=== PATIENT | male | born 1935 | race Caucasian/White ===

== ENCOUNTER 2016-09-25 09:24 | Observation (INO) | payer MEDICARE, OTHER ==
[~2016-09-25] VITALS: Ht 188 cm; Wt 97.0 kg
[2016-09-25] VITALS (9 sets, daily range): BP systolic 101–141; BP diastolic 60–98; PULSE 77–125; RESP 18–28; TEMP 97.6–98.6; O2SAT 90–98
[~2016-09-25 09:24] MED LIST: ADAL30TA10 PO; ALBU6.7H INH; ASPI81 PO; ATOR20TA42 PO; DOXY100T PO; POTA-243 PO
[2016-09-25] MEDS ORDERED: SODIUM CHLORIDE 0.9% FLUSH 5 ML FLUSH IVF PRN ×2 (09:45→16:30)
[2016-09-25] MEDS ORDERED: LISI-519 PO (09:56)
[2016-09-25] MEDS ORDERED: APIX5TAB PO (09:56)
[2016-09-25] MEDS ORDERED: CARV6.25 PO (09:56)
[2016-09-25] MEDS ORDERED: DIGO0.25 PO (09:56)
[2016-09-25] MEDS ORDERED: LIPI20TA PO (09:56)
[2016-09-25] MEDS ORDERED: FURO1TAB62 PO (09:56)
[2016-09-25 10:03] LABS: AUTOMATED NEUTROPHIL # 6.1 TH/MM3 (1.8-7.7); BASOPHIL # 0.1 TH/MM3 (0-0.2); BASOPHIL % 1.3 % (0.0-2.0); EOSINOPHIL # 0.4 TH/MM3 (0-0.4); EOSINOPHIL % 4.3 % (0.0-4.0); HEMO FLAGS DIFF FINAL; LYMPH % 12.3 % (9.0-44.0); MEAN CELL VOLUME 88.7 FL (80.0-100.0); MEAN CORPUSCULAR HEMOGLOBIN 29.3 PG (27.0-34.0); MONO % 10.2 % (0.0-8.0); NEUT % 71.9 % (16.0-70.0); PLATELET COUNT 121 TH/MM3 (150-450); RED BLOOD COUNT 5.41 MIL/MM3 (4.50-5.90); WHITE BLOOD COUNT 8.5 TH/MM3 (4.0-11.0)
--- NOTE | 2016-09-25 10:03 | RADRPT ---
EXAM DATE/TIME: 09/25/2016 09:39 [facility] COMPARISON: No previous studies available for comparison. INDICATIONS : Shortness of breath. MEDICAL HISTORY : Hypertension. SURGICAL HISTORY : Pacemaker. ENCOUNTER: Initial ACUITY: 2 days PAIN SCORE: 0/10 LOCATION: Bilateral chest FINDINGS: There is interstitial prominence and patchy airspace disease at the lung bases right greater than lef t. Cardiomegaly. No effusions. Aortic calcification. Single lead pacer from a left subclavian transve nous approach. CONCLUSION: Interstitial prominence and basilar airspace disease. Richar Will MD on September 25, 2016 at 10:01 Board Certified Radiologist. This report was verified electronically.
[2016-09-25 10:14] LABS: APTT (PATIENT) 29.1 SEC (24.3-30.1); INTERNATIONAL NORMALIZED RATIO 1.2 RATIO; PROTHROMBIN TIME - PATIENT 12.9 SEC (9.8-11.6)
[2016-09-25] MEDS ORDERED: FUROSEMIDE 40 MG/4 ML VIAL IV PUSH ONE (10:30)
--- NOTE | 2016-09-25 10:30 | PD ---
HPI Chief Complaint: Respiratory Symptoms Time Seen by Provider: 09:36 Travel History International Travel<30 days: No Contact w/Intl Traveler<30days: No Traveled to known affect area: No History of Present Illness HPI Patient is an 81-year-old male who presents to emergency room with complaints of shortness of breath. Patient reports that he had a pacemaker placed in August 24, in [place] where he resides half of the time. Patient reports, "I don't know why I had a defibrillator placed." Patient reports that he has been short of breath ever since he had his defibrillator placed. Patient reports that his shortness of breath has been intermittent, reports that over the past 4 days, his shortness of breath has been more persistent. Patient reports that he feels short of breath at rest as well as on exertion. Patient reports that he does use chronic home oxygen at 2 L. Reports that he was not able to sleep last night and had to sit up because he was feeling short of breath. Patient denies chest pain, denies cough or congestion. Patient reports no sick contacts. Patient denies fever or chills. Patient reports a remote history of smoking in the past, reports that he currently does not smoke. Patient denies history of CHF or COPD. Patient is unsure which medications he takes this time. Patient denies any medical history. Patient is alert and oriented 3 Patient's arrives with medication list, patient is on Eliquis, digoxin, coreg, laxis 20mg, lisinopril and atorvastatin PFSH Past Medical History High Cholesterol: Yes Diminished Hearing: No Genitourinary: Yes (PROSTATE ENLARGEMENT) Hypertension: Yes Kidney Stones: Yes Influenza Vaccination: Yes Past Surgical History Eye Surgery: Yes (CATARACTS SURGERY) Genitourinary Surgery: Yes (PARTIAL PROSTATECTOMY) Pacemaker: Yes Family History Family History: Negative Social History Alcohol Use: Yes (2 DRINKS TWICE A MONTH) Tobacco Use: No Substance Use: No Allergies-Medications (Allergen,Severity, Reaction): Coded Allergies: No Known Allergies (Verified , 09/25/16) Reported Meds & Prescriptions Reported Meds & Active Scripts Active Reported Lisinopril 5 Mg Tab 5 Mg PO DAILY Lasix (Furosemide) 20 Mg Tab 20 Mg PO BID Digoxin 0.25 Mg Tab 0.25 Mg PO DAILY Coreg (Carvedilol) 6.25 Mg Tab 6.25 Mg PO BID Lipitor (Atorvastatin Calcium) 20 Mg Tab 20 Mg PO HS Eliquis (Apixaban) 5 Mg Tab 5 Mg PO BID Review of Systems Cardiovascular: No: Chest Pain or Discomfort, Palpitations, Irregular Rhythm, Syncope Respiratory: Positive: Shortness of Breath, No: Cough Gastrointestinal: No: Nausea, Vomiting, Diarrhea, Abdominal Pain Physical Exam Narrative GENERAL: Nontoxic SKIN: Warm and dry. HEAD: Atraumatic. Normocephalic. EYES: Pupils equal and round. No scleral icterus. No injection or drainage. ENT: No nasal bleeding or discharge. Mucous membranes pink and moist. NECK: Trachea midline. No JVD. CARDIOVASCULAR: Tachycardic. No murmur appreciated. RESPIRATORY: No accessory muscle use. Patient with rales to lower lung bases. Breath sounds equal bilaterally. GASTROINTESTINAL: Abdomen soft, non-tender, nondistended. Hepatic and splenic margins not palpable. MUSCULOSKELETAL: No obvious deformities. No clubbing. No cyanosis. +2 edema bilaterally NEUROLOGICAL: Awake and alert. No obvious cranial nerve deficits. Motor grossly within normal limits. Normal speech. PSYCHIATRIC: Appropriate mood and affect; insight and judgment normal. Data Data Last Documented VS Vital Signs Date Time Temp Pulse Resp B/P Pulse Ox O2 Delivery O2 Flow Rate FiO2 09/25/16 13:13 77 22 101/60 90 2 09/25/16 11:38 Nasal Cannula 09/25/16 09:28 98.6 Orders Complete Blood Count With Diff (09/25/16 09:37) Comprehensive Metabolic Panel (09/25/16 09:37) B-Type Natriuretic Peptide (09/25/16 09:37) Act Partial Throm Time (Ptt) (09/25/16 09:37) Prothrombin Time / Inr (Pt) (09/25/16 09:37) Magnesium (Mg) (09/25/16 09:37) Ckmb (Isoenzyme) Profile (09/25/16 09:37) Troponin I (09/25/16 09:37) Urinalysis - C+S If Indicated (09/25/16 09:37) Influenzae A/B Antigen (09/25/16 09:37) Blood Culture (09/25/16 09:37) Iv Access Insert/Monitor (09/25/16 09:37) Electrocardiogram (09/25/16 09:37) Ecg Monitoring (09/25/16 09:37) Oximetry (09/25/16 09:37) Oxygen Administration (09/25/16 09:37) Chest, Single Ap (09/25/16 09:37) Sodium Chloride 0.9% Flush (Ns Flush) (09/25/16 09:45) Us Leg Venous Doppler Bilat (09/25/16 ) Furosemide Inj (Lasix Inj) (09/25/16 10:30) Ct Pulmonary Angiogram (09/25/16 11:59) Diltiazem Inj (Cardizem Inj) (09/25/16 12:00) Digoxin (09/25/16 12:01) Iohexol 350 Inj (Omnipaque 350 Inj) (09/25/16 12:47) Diltiazem (Cardizem) (09/25/16 13:30) Labs Laboratory Tests Test 09/25/16 09/25/16 09:46 12:25 White Blood Count 8.5 TH/MM3 Red Blood Count 5.41 MIL/MM3 Hemoglobin 15.8 GM/DL Hematocrit 48.0 % Mean Corpuscular Volume 88.7 FL Mean Corpuscular Hemoglobin 29.3 PG Mean Corpuscular Hemoglobin 33.0 % Concent Red Cell Distribution Width 15.0 % Platelet Count 121 TH/MM3 Mean Platelet Volume 11.0 FL Neutrophils (%) (Auto) 71.9 % Lymphocytes (%) (Auto) 12.3 % Monocytes (%) (Auto) 10.2 % Eosinophils (%) (Auto) 4.3 % Basophils (%) (Auto) 1.3 % Neutrophils # (Auto) 6.1 TH/MM3 Lymphocytes # (Auto) 1.0 TH/MM3 Monocytes # (Auto) 0.9 TH/MM3 Eosinophils # (Auto) 0.4 TH/MM3 Basophils # (Auto) 0.1 TH/MM3 CBC Comment DIFF FINAL Differential Comment Prothrombin Time 12.9 SEC Prothromb Time International 1.2 RATIO Ratio Activated Partial 29.1 SEC Thromboplast Time Sodium Level 143 MEQ/L Potassium Level 3.8 MEQ/L Chloride Level 110 MEQ/L Carbon Dioxide Level 23.2 MEQ/L Anion Gap 10 MEQ/L Blood Urea Nitrogen 28 MG/DL Creatinine 1.01 MG/DL Estimat Glomerular Filtration 71 ML/MIN Rate Random Glucose 110 MG/DL Calcium Level 8.5 MG/DL Magnesium Level 2.2 MG/DL Total Bilirubin 1.0 MG/DL Aspartate Amino Transf 72 U/L (AST/SGOT) Alanine Aminotransferase 91 U/L (ALT/SGPT) Alkaline Phosphatase 192 U/L Total Creatine Kinase 79 U/L Troponin I LESS THAN 0.02 NG/ML B-Type Natriuretic Peptide 997 PG/ML Total Protein 6.7 GM/DL Albumin 3.2 GM/DL Urine Color COLORLESS Urine Turbidity CLEAR Urine pH 7.0 Urine Specific [place] 1.004 Urine Protein NEG mg/dL Urine Glucose (UA) NEG mg/dL Urine Ketones NEG mg/dL Urine Occult Blood NEG Urine Nitrite NEG Urine Bilirubin NEG Urine Urobilinogen LESS THAN 2.0 MG/DL Urine Leukocyte Esterase NEG Urine RBC 1 /hpf Urine WBC LESS THAN 1 /hpf Urine Squamous Epithelial <1 /hpf Cells Microscopic Urinalysis Comment CULT NOT INDICATED MDM Medical Decision Making Medical Screen Exam Complete: Yes Emergency Medical Condition: Yes Interpretation(s) afib at 109bpm, qt/qtc: 347/411 Vital Signs Date Time Temp Pulse Resp B/P Pulse Ox O2 Delivery O2 Flow Rate FiO2 09/25/16 09:41 92 09/25/16 09:40 92 Nasal Cannula 2 09/25/16 09:28 98.6 125 28 141/89 91 Differential Diagnosis CHF exacerbation, COPD exacerbation, ACS, electrolyte abnormality, influenza, pneumonia, PE, DVT, pneumothorax Narrative Course Patient is an 81-year-old male who presents to emergency room with complaints of shortness of breath. Shortness of breath has been intermittent since August 24 when his defibrilator was placed. Patient reports that history was breath has been persistent over the past 4 days, reports shortness of breath with rest as well as exertion. Patient does use 2L [place] oxygen at all times. Patient placed on lunchroom monitor as well as continuous pulse oximeter upon arrival to ER. EKG obtained. Xray of chest ordered. CBC, BMP, BNP, CE, blood cultures, and influenza ordered. US of legs ordered to evaluate for possible DVT as patient does have swelling to his legs. Will give a dose of IV lasiz as pt does appear to be fluid overloaded. Pt's on route to hospital - as per pt - she has his medication card and all the information about this medical history Medications list reviewed, patient currently on Eliquis, digoxin, Lasix, lisinopril, atorvastatin, Coreg, will check digoxin level. Patient with A. fib with RVR, will give dose of Cardizem pt responded to iv cardizem - pt hr now in the 80's, will give PO dose of cardizem Physician Communication Physician Communication case reviewed with fp resident dr urias, accepts pt to service Diagnosis Primary Impression: Atrial fibrillation with rapid ventricular response Additional Impression: CHF (congestive heart failure) Qualified Code: I50.9 - Acute on chronic congestive heart failure, unspecified congestive heart failure type Admitting Information Admitting Physician Requests: Admit Lashawn Song DO Sep 25, 2016 10:30
[2016-09-25 10:35] LABS: ALKALINE PHOSPHATASE 192 U/L (45-117); ALT (GPT) 91 U/L (12-78); ANION GAP 10 MEQ/L (5-15); AST (GOT) 72 U/L (15-37); BICARBONATE 23.2 MEQ/L (21.0-32.0); BLOOD UREA NITROGEN 28 MG/DL (7-18); CHLORIDE 110 MEQ/L (98-107); GLOMERULAR FILTRATION RATE 71 ML/MIN (>89); MAGNESIUM 2.2 MG/DL (1.5-2.5); SODIUM (NA) 143 MEQ/L (136-145)
[2016-09-25 10:36] LABS: CREATINE KINASE 79 U/L (39-308); POTASSIUM 3.8 MEQ/L (3.5-5.1)
--- NOTE | 2016-09-25 10:43 | RADRPT ---
EXAM DATE/TIME: 09/25/2016 10:13 [facility] COMPARISON: No previous studies available for comparison. INDICATIONS : Bilateral leg swelling. MEDICAL HISTORY : Hypercholesterolemia. Hypertension. Kidney stones. SURGICAL HISTORY : Pacemaker. Cataract removal. Hand surgery. ENCOUNTER: Initial ACUITY: 3 days PAIN SCORE: 0/10 LOCATION: Bilateral legs. TECHNIQUE: Venous ultrasound of the left and right leg was performed from the inguinal ligament to the proximal calf. Real-time, color Doppler and spectral tracing, compression and augmentation techniques were us ed. FINDINGS: RIGHT LEG: There is normal compressibility of the deep venous system from the inguinal region to the proximal ca lf. No echogenic clot is seen in the lumen of the common femoral, femoral, popliteal, and posterior tibial veins. There is a normal response of the venous system to proximal and distal augmentation an d respiration. LEFT LEG: There is normal compressibility of the deep venous system from the inguinal region to the proximal ca lf. No echogenic clot is seen in the lumen of the common femoral, femoral, popliteal, and posterior tibial veins. There is a normal response of the venous system to proximal and distal augmentation an d respiration. CONCLUSION: Normal examination. Richar Will MD on September 25, 2016 at 10:41 Board Certified Radiologist. This report was verified electronically.
[2016-09-25] MEDS ORDERED: DILTIAZEM HCL 25 MG/5 ML VIAL IV ONE (12:00)
[2016-09-25 12:34] LABS: BLOOD, URINE NEG (NEG); COMMENT (UR) CULT NOT INDICATED; CULTURE IF INDICATED CULT NOT INDICATED; GLUCOSE,URINE NEG (NEG); KETONE, URINE NEG (NEG); NITRITE,URINE NEG (NEG); SQUAMOUS EPITHELIAL CELL URINE <1 /hpf (0-5); URINE COLOR COLORLESS (YELLW/STRAW)
[2016-09-25] MEDS ORDERED: IOHEXOL 350 MG/ML 10 ML VIAL (for RAD DIAG) IV ONE (12:47)
--- NOTE | 2016-09-25 13:00 | RADRPT ---
EXAM DATE/TIME: 09/25/2016 12:35 [facility] COMPARISON: CHEST SINGLE AP, September 25, 2016, 9:39. INDICATIONS : Shortness of breath for three days. IV CONTRAST: 49 cc Omnipaque 350 (iohexol) IV RADIATION DOSE: 21.50 CTDIvol (mGy) MEDICAL HISTORY : Hypertension. SURGICAL HISTORY : None. ENCOUNTER: Initial ACUITY: 1 day PAIN SCALE: 0/10 LOCATION: chest TECHNIQUE: Volumetric scanning of the chest was performed using a pulmonary embolism protocol MIP images were re constructed. Using automated exposure control and adjustment of the mA and/or kV according to patien t size, radiation dose was kept as low as reasonably achievable to obtain optimal diagnostic quality images. FINDINGS: Severe emphysematous changes, large bilateral pleural effusions, and lower lobe airspace disease. The re is peribronchial thickening and mild bronchiectasis in the lower lobes. There is a cystic air spac e with possible air-fluid level in the right lower lobe measuring 2.1 cm, and a cavitary lesion is no t excluded. There is adenopathy within the mediastinum with multiple prominent lymph nodes including 1.3 cm AP window lymph node, right paratracheal adenopathy up to 1.8 cm, subcarinal adenopathy up to 1.6 cm and right hilar adenopathy up to 1.1 cm. Left hilar adenopathy is also seen up to 1.1 cm. Left renal cyst at the upper pole. There is no evidence for pulmonary embolism. Extensive atherosclerotic disease including heavy coronary artery calcifications. CONCLUSION: 1. Large bilateral pleural effusions and airspace disease. 2. No evidence for pulmonary embolism. 3. Mediastinal and hilar adenopathy. 4. Right lower lobe cavitary focus not excluded. 5. Emphysema. Richar Will MD on September 25, 2016 at 12:56 Board Certified Radiologist. This report was verified electronically.
[2016-09-25] MEDS ORDERED: DILTIAZEM HCL 60 MG TAB PO ONE (13:30)
--- NOTE | 2016-09-25 15:40 | HHI.FPPN ---
Subjective Remarks Pt. seen, examined and discussed with Drs. Foss and Sushil. This is an 81 yo snowbird who lives half the year in [place] who presented with SOB which prevented him from sleeping at all last night. He has been told he has a weak heart. On 08-24-16 he got a difibrillator implanted in [place]. Subsequently he developed SOB and saw a physician who diagnosed him with the flu and treated him with antibiotics. He got better for a few days but his SOB has been getting progressively worse. They drove from [place] and arrived in [place] 4 days ago. SOB has persisted, and at 0300 this a.m. he had his call evac. He denies dizziness, chest pain, nausea, vomiting in association with this SOB. Denies palpitations. Meds include Coreg, digoxin, lipitor, lasix, Eliquis. See H&P for this hospitalization for additional past, family and social history. He is , retired, quit smoking 7 years ago, no etoh or illicits. Other than as noted above, his complete review of systems was negative. Objective Vitals Vital Signs Date Time Temp Pulse Resp B/P Pulse Ox O2 Delivery O2 Flow Rate FiO2 09/25/16 13:13 77 22 101/60 90 2 09/25/16 11:38 124 20 131/98 95 Nasal Cannula 2 09/25/16 09:41 92 09/25/16 09:40 92 Nasal Cannula 2 09/25/16 09:28 98.6 125 28 141/89 91 Result Diagram: 09/25/16 0946 09/25/16 0946 Other Results Laboratory Tests Test 09/25/16 09/25/16 09/25/16 09:46 12:25 12:57 White Blood Count 8.5 TH/MM3 Red Blood Count 5.41 MIL/MM3 Hemoglobin 15.8 GM/DL Hematocrit 48.0 % Mean Corpuscular Volume 88.7 FL Mean Corpuscular Hemoglobin 29.3 PG Mean Corpuscular Hemoglobin 33.0 % Concent Red Cell Distribution Width 15.0 % Platelet Count 121 TH/MM3 Mean Platelet Volume 11.0 FL Neutrophils (%) (Auto) 71.9 % Lymphocytes (%) (Auto) 12.3 % Monocytes (%) (Auto) 10.2 % Eosinophils (%) (Auto) 4.3 % Basophils (%) (Auto) 1.3 % Neutrophils # (Auto) 6.1 TH/MM3 Lymphocytes # (Auto) 1.0 TH/MM3 Monocytes # (Auto) 0.9 TH/MM3 Eosinophils # (Auto) 0.4 TH/MM3 Basophils # (Auto) 0.1 TH/MM3 CBC Comment DIFF FINAL Differential Comment Prothrombin Time 12.9 SEC Prothromb Time International 1.2 RATIO Ratio Activated Partial 29.1 SEC Thromboplast Time Sodium Level 143 MEQ/L Potassium Level 3.8 MEQ/L Chloride Level 110 MEQ/L Carbon Dioxide Level 23.2 MEQ/L Anion Gap 10 MEQ/L Blood Urea Nitrogen 28 MG/DL Creatinine 1.01 MG/DL Estimat Glomerular Filtration 71 ML/MIN Rate Random Glucose 110 MG/DL Calcium Level 8.5 MG/DL Magnesium Level 2.2 MG/DL Total Bilirubin 1.0 MG/DL Aspartate Amino Transf 72 U/L (AST/SGOT) Alanine Aminotransferase 91 U/L (ALT/SGPT) Alkaline Phosphatase 192 U/L Total Creatine Kinase 79 U/L Troponin I LESS THAN 0.02 NG/ML B-Type Natriuretic Peptide 997 PG/ML Total Protein 6.7 GM/DL Albumin 3.2 GM/DL Urine Color COLORLESS Urine Turbidity CLEAR Urine pH 7.0 Urine Specific [place] 1.004 Urine Protein NEG mg/dL Urine Glucose (UA) NEG mg/dL Urine Ketones NEG mg/dL Urine Occult Blood NEG Urine Nitrite NEG Urine Bilirubin NEG Urine Urobilinogen LESS THAN 2.0 MG/DL Urine Leukocyte Esterase NEG Urine RBC 1 /hpf Urine WBC LESS THAN 1 /hpf Urine Squamous Epithelial <1 /hpf Cells Microscopic Urinalysis Comment CULT NOT INDICATED Digoxin Level LESS THAN 0.1 NG/ML Imaging Venous dopplers LE negative CTA negative for PE, + for bilateral pleural effusions and emphysema. Possible lower lobe cavitary lesion Objective Remarks O. CONSTITUTIONAL/GEN: normally nourished, in some distress with SOB. EYES: conjunctiva normal, PERRLA, EOMI. ENT: Mouth and pharynx normal. MM moist. NECK: thyroid midline, neck supple, no lymphadenopathy LUNGS: Decreased breath sounds both bases CARDIOVASCULAR: Irreg/irreg without murmur or gallop. Pitting edema to knees. GI/ABD: soft without masses, without organomegaly. Protuberant, BS+ NEURO: No focal deficits. SKIN: color normal, no rashes noted. HEME/LYMPH: no bruising, petechia or significant adenopathy MUSC: back is normal in appearance. Extremities are normal in appearance except for edema. PSYCH/MENTAL STATUS: Alert and oriented x 3. A/P Assessment and Plan Bilateral pleural effusions, emphysema, AF with RVR, ? cavitary lesion lower lobe Attending Attestation Patient seen and examined. Case reviewed and discussed with the resident team. Agree with plan of care as discussed with me and documented in the resident note. Elham Foss MD Sep 25, 2016 15:40
--- NOTE | 2016-09-25 16:10 | HHI.HP ---
[facility] Service Family Medicine Primary Care Physician Non-Staff Admission Diagnosis afib with rvr, chf exacerbation Diagnoses: International Travel<30 Days: No Contact w/Intl Traveler<30days: No Known Affected Area: No History of Present Illness Was having irregular rhythm to heart in Jul. Defibrillator placed on Aug 24. Patient reports worsening of shortness of breath since this procedure. Patient experienced shortness of breath on . He presented to a doctor who prescribed antibiotics. He only took one because of adverse effects. Symptoms got better then worse since that time. Patient drove down here 4-5 days ago from [place]. Around that time 4-5 days ago, shortness of breath at rest and with exertion got much worse: he could not lie down. He could only sit up. At around 3am this morning, he told his to call 911 because he felt like he couldn't breathe when lying down. Evac brought him here. Pt reports med compliance, but this is questionable. Patient denies chest pain, denies cough or congestion. Patient reports no sick contacts. Patient denies fever or chills. Patient reports a remote history of smoking in the past, reports that he currently does not smoke. Patient denies history of CHF or COPD. Patient is unsure which medications he takes this time. (Paco Ling MD R1) Review of Systems Constitutional: DENIES: Fever, Chills Endocrine: COMPLAINS OF: Polyuria (with diuretic) Eyes: COMPLAINS OF: Blurred vision, DENIES: Vision loss, Double Vision Ears, nose, mouth, throat: DENIES: Hearing loss Respiratory: COMPLAINS OF: Shortness of breath, DENIES: Cough Cardiovascular: COMPLAINS OF: Dyspnea on Exertion, Orthopnea, DENIES: Chest pain, Palpitations, Syncope Gastrointestinal: DENIES: Abdominal pain, Black stools, Bloody stools, Constipation, Diarrhea Genitourinary: DENIES: Dysuria Musculoskeletal: DENIES: Joint pain Integumentary: DENIES: Rash Neurologic: DENIES: Headache (Paco Ling MD R1) Past Family Social History Past Medical History HTN BPH s/p TURP off cholesterol med Past Surgical History TURP defibrillator placed on 2015 Reported Medications Patient's arrived with medication list, patient is on Eliquis, digoxin, coreg, laxis 20mg, lisinopril and atorvastatin (Paco Ling MD R1) Allergies: Coded Allergies: No Known Allergies (Verified , 09/25/16) Active Ordered Medications Current Medications Medications (Trade) Dose Ordered Sig/Juan Route Start Time Stop Time Status Last Admin (NS Flush) 2 ml BID IVF 09/25/16 21:00 09/25/16 21:27 (NS Flush) 2 ml UNSCH PRN IVF 09/25/16 16:30 (Lasix Inj) 40 mg BID@09,18 IVP 09/25/16 18:00 09/25/16 17:49 (KCl) 20 meq BID PO 09/25/16 21:00 09/25/16 21:26 (Eliquis) 5 mg BID PO 09/25/16 21:00 09/25/16 21:26 (Lipitor) 20 mg HS PO 09/25/16 21:00 09/25/16 21:27 (Coreg) 6.25 mg BID PO 09/25/16 21:00 09/25/16 21:26 (Lanoxin) 0.25 mg DAILY PO 09/26/16 09:00 (Prinivil) 5 mg DAILY PO 09/26/16 09:00 (Narcan Inj) 0.4 mg UNSCH PRN IV 09/25/16 16:30 (Cardizem Cd) 120 mg DAILY PO 09/26/16 09:00 (Cardizem) 30 mg QID PRN PO 09/25/16 16:30 Family History Negative Social History 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 spends half his time in [place] and half his time here in [place]. used to smoke. pt reports that he quit smoking about 7 years ago, but he started smoking in [place] about 40 years ago. doesn't like EtOH. Drinks only occasionally. (Paco Ling MD R1) Physical Exam Vital Signs Vital Signs Date Time Temp Pulse Resp B/P Pulse Ox O2 Delivery O2 Flow Rate FiO2 09/25/16 13:13 77 22 101/60 90 2 09/25/16 11:38 124 20 131/98 95 Nasal Cannula 2 09/25/16 09:41 92 09/25/16 09:40 92 Nasal Cannula 2 09/25/16 09:28 98.6 125 28 141/89 91 Physical Exam GENERAL: This is a well-nourished, well-developed elderly patient, in no apparent distress. SKIN: No rashes, ecchymoses or lesions. Cool and dry. HEAD: Atraumatic. Normocephalic. EYES: Pupils equal round and reactive. Extraocular motions intact. No scleral icterus. No injection or drainage. ENT: Nose without bleeding, purulent drainage. Throat without erythema, tonsillar hypertrophy or exudate. Uvula midline. Airway patent. NECK: Trachea midline. No JVD or lymphadenopathy. Supple, nontender, no meningeal signs. CARDIOVASCULAR: Regular rate and rhythm without murmurs, gallops, or rubs. RESPIRATORY: Clear to auscultation. Breath sounds equal bilaterally. No wheezes , rales, or rhonchi. GASTROINTESTINAL: Abdomen soft, non-tender, nondistended. No guarding. MUSCULOSKELETAL: Extremities without clubbing, cyanosis, or edema. No joint tenderness, effusion, however 2+ edema noted to knees BL. No calf tenderness. NEUROLOGICAL: Awake and alert. Cranial nerves II through XII grossly intact. Motor and sensory grossly within normal limits. Normal speech. Laboratory Laboratory Tests Test 09/25/16 09/25/16 09/25/16 09:46 12:25 12:57 White Blood Count 8.5 Red Blood Count 5.41 Hemoglobin 15.8 Hematocrit 48.0 Mean Corpuscular Volume 88.7 Mean Corpuscular Hemoglobin 29.3 Mean Corpuscular Hemoglobin 33.0 Concent Red Cell Distribution Width 15.0 Platelet Count 121 Mean Platelet Volume 11.0 Neutrophils (%) (Auto) 71.9 Lymphocytes (%) (Auto) 12.3 Monocytes (%) (Auto) 10.2 Eosinophils (%) (Auto) 4.3 Basophils (%) (Auto) 1.3 Neutrophils # (Auto) 6.1 Lymphocytes # (Auto) 1.0 Monocytes # (Auto) 0.9 Eosinophils # (Auto) 0.4 Basophils # (Auto) 0.1 CBC Comment DIFF FINAL Differential Comment Prothrombin Time 12.9 Prothromb Time International 1.2 Ratio Activated Partial 29.1 Thromboplast Time Sodium Level 143 Potassium Level 3.8 Chloride Level 110 Carbon Dioxide Level 23.2 Anion Gap 10 Blood Urea Nitrogen 28 Creatinine 1.01 Estimat Glomerular Filtration 71 Rate Random Glucose 110 Calcium Level 8.5 Magnesium Level 2.2 Total Bilirubin 1.0 Aspartate Amino Transf 72 (AST/SGOT) Alanine Aminotransferase 91 (ALT/SGPT) Alkaline Phosphatase 192 Total Creatine Kinase 79 Troponin I LESS THAN 0.02 B-Type Natriuretic Peptide 997 Total Protein 6.7 Albumin 3.2 Urine Color COLORLESS Urine Turbidity CLEAR Urine pH 7.0 Urine Specific [place] 1.004 Urine Protein NEG Urine Glucose (UA) NEG Urine Ketones NEG Urine Occult Blood NEG Urine Nitrite NEG Urine Bilirubin NEG Urine Urobilinogen LESS THAN 2.0 Urine Leukocyte Esterase NEG Urine RBC 1 Urine WBC LESS THAN 1 Urine Squamous Epithelial <1 Cells Microscopic Urinalysis Comment CULT NOT INDICATED Digoxin Level LESS THAN 0.1 Date/Time Procedure Status Source Growth 09/25/16 09:46 Influenza Types A,B Antigen (JOANA) - Final Complete Nasal Aspirate NEGATIVE FOR FLU A AND B ANTIGEN.... 09/25/16 09:46 Aerobic Blood Culture Received Blood Peripheral Pending 09/25/16 09:46 Anaerobic Blood Culture Received Blood Peripheral Pending (Paco Lign MD R1) Result Diagram: 09/25/16 0946 09/25/16 [address] Angiography 09/25/16 1159 Signed Impressions: Service Date/Time: Sunday, September 25, 2016 12:35 - CONCLUSION: 1. Large bilateral pleural effusions and airspace disease. 2. No evidence for pulmonary embolism. 3. Mediastinal and hilar adenopathy. 4. Right lower lobe cavitary focus not excluded. 5. Emphysema. Richar Will MD Chest X-Ray 09/25/16 0937 Signed Impressions: Service Date/Time: Sunday, September 25, 2016 09:39 - CONCLUSION: Interstitial prominence and basilar airspace disease. Richar Will MD Lower Extremity Ultrasound 09/25/16 0000 Signed Impressions: Service Date/Time: Sunday, September 25, 2016 10:13 - CONCLUSION: Normal examination. Richar Will MD Course In Emergency Department, patient had EKG, chest x-ray, CBC, BMP, BNP, CPE, blood cultures, influenza, ultrasound of legs to rule out DVT, IV Lasix, diltiazem IV and by mouth (Paco Ling MD R1) Assessment and Plan Assessment and Plan Patient is an 81-year-old man who presents to the emergency department with chief complaint of shortness of breath and orthopnea found to be experiencing A. fib with RVR and CHF exacerbation, presenting with a pulse of 125 and pulse ox of 91, BNP of 997, digoxin less than 0.1, and CTA showing large bilateral pleural effusions, lower lobe airspace disease, peribronchial thickening, mild bronchiectasis in the lower lobes, cystic airspace with possible air-fluid level in the right lobe, mediastinal adenopathy, no PE. Place in observation for rate control and diuresis as needed. Code Status Full code Discussed Condition With Patient seen and discussed with Dr. Elham Foss and Dr. Anjel Foss. (Paco Ling MD R1) Attending Attestation Patient seen and examined. Case reviewed and discussed with the resident team. Agree with plan of care as discussed with me and documented in the resident note. (Elham Foss MD) Problem List: (1) CHF (congestive heart failure) Status: Acute Plan: Patient presented with chief complaint of shortness of breath and orthopnea, fluid overloaded on exam with 2+ pitting edema to the knees bilaterally. Patient likely noncompliant with medications given his history of acute exacerbation that coincided with long car ride in addition to digoxin level of less than 0.1. 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 Diltiazem CD 120 mg by mouth daily Diltiazem 30 mg by mouth 4 times a day when necessary for rapid heart rate over 100 bpm, hold for systolic blood pressure less than 100 mmHg (3) Nutrition, metabolism, and development symptoms Status: Acute Plan: Fluids: None indicated at this time given patient's volume overload status Electrolytes: Monitor and replete as needed Nutrition: Heart healthy diet GI prophylaxis: Not indicated at this time (4) No contraindication to deep vein thrombosis (DVT) prophylaxis Status: Acute Plan: Patient already on apixaban. Continue patient's home medication of apixaban. (Paco Ling MD R1) Physician Certification 2 Midnight Certification Type: Admission for Inpatient Services Order for Inpatient Services The services are ordered in accordance with Medicare regulations or non- Medicare payer requirements, as applicable. In the case of services not specified as inpatient-only, they are appropriately provided as inpatient services in accordance with the 2-midnight benchmark. Estimated LOS (days): 2 2 days is the estimated time the patient will need to remain in the hospital, assuming treatment plan goals are met and no additional complications. Post-Hospital Plan: Not yet determined Notes: could be an observation, in which case, disregard this Inpatient certification. (Paco Ling MD R1) Problem Qualifiers (1) CHF (congestive heart failure): Qualified Code: I50.9 - Acute on chronic congestive heart failure, unspecified congestive heart failure type Paco Ling MD R1 Sep 25, 2016 16:10 Elham Foss MD Sep 26, 2016 08:00
[2016-09-25] MEDS ORDERED: NALOXONE HCL 0.4 MG/ML AMP IV PRN (16:30)
[2016-09-25] MEDS ORDERED: DILTIAZEM HCL 30 MG TAB PO PRN (16:30)
--- NOTE | 2016-09-25 17:48 | EKG ---
Date Performed: 09/25/2016 Time Performed: 09:41:12 PTAGE: 81 years EKG: ATRIAL FIBRILLATION WITH RAPID VENTRICULAR RESPONSE WITH ABERRANT CONDUCTION OR VENTRICULAR PREMATURE COMPLEXES MARKED LEFT AXIS DEVIATION LOW QRS VOLTAGE IN EXTREMITY LEADS POSSIBLE ANTERIOR MYOCARDIAL INFARCTION ABNORMAL ECG NO PREVIOUS TRACING DOCTOR: Carol Meneses Interpretating Date/Time 09/25/2016 17:45:22
[2016-09-25] MEDS: FUROSEMIDE 40 MG/4 ML VIAL IVP SCH (17:49)
[2016-09-25] MEDS: POTASSIUM CHLORIDE 20 MEQ CONTROLLED RELEASE TAB PO SCH (21:26)
[2016-09-25] MEDS: CARVEDILOL 6.25 MG TAB PO SCH (21:26)
[2016-09-25] MEDS: APIXABAN 5 MG TABLET PO SCH (21:26)
[2016-09-25] MEDS: SODIUM CHLORIDE 0.9% FLUSH 5 ML FLUSH IVF SCH (21:27)
[2016-09-25] MEDS: ATORVASTATIN 20 MG TAB PO SCH (21:27)
[2016-09-26] VITALS (7 sets, daily range): BP systolic 100–140; BP diastolic 71–89; PULSE 85–123; RESP 18–22; TEMP 97.2–98.1; O2SAT 92–94
[2016-09-26 08:05] LABS: BICARBONATE 25.1 MEQ/L (21.0-32.0); POTASSIUM 3.5 MEQ/L (3.5-5.1)
[2016-09-26] MEDS: DILTIAZEM-CD 120 MG CAP ER PO SCH (09:18)
[2016-09-26] MEDS: SODIUM CHLORIDE 0.9% FLUSH 5 ML FLUSH IVF SCH ×2 (09:18→21:32)
[2016-09-26] MEDS: DIGOXIN 0.25 MG TAB PO SCH (09:18)
[2016-09-26] MEDS: APIXABAN 5 MG TABLET PO SCH ×2 (09:18→21:32)
[2016-09-26] MEDS: FUROSEMIDE 40 MG/4 ML VIAL IVP SCH ×2 (09:18→17:25)
[2016-09-26] MEDS: POTASSIUM CHLORIDE 20 MEQ CONTROLLED RELEASE TAB PO SCH ×2 (09:18→21:32)
[2016-09-26] MEDS: LISINOPRIL 5 MG TAB PO SCH (09:19)
[2016-09-26] MEDS: CARVEDILOL 6.25 MG TAB PO SCH ×2 (09:19→21:31)
--- NOTE | 2016-09-26 11:46 | HHI.FPPN ---
Subjective Remarks No acute events overnight. Afebrile. Blood pressure well controlled. Patient remains tachycardic to 123. He denies any chest pain, shortness of breath. ( Lashawn Merino MD R3) Objective Vitals Vital Signs Date Time Temp Pulse Resp B/P Pulse Ox O2 Delivery O2 Flow Rate FiO2 09/26/16 10:16 123 09/26/16 08:00 98.0 114 20 140/89 94 09/26/16 04:00 98.1 108 18 138/82 94 09/25/16 23:48 97.7 104 20 140/87 92 09/25/16 20:40 Nasal Cannula 2.00 09/25/16 20:07 104 09/25/16 20:00 97.7 88 18 122/76 94 09/25/16 18:03 97.6 97 20 125/94 98 09/25/16 17:59 Nasal Cannula 3.00 09/25/16 16:59 96 24 129/74 92 Nasal Cannula 3 09/25/16 13:13 77 22 101/60 90 2 I/O 09/25/16 09/25/16 09/25/16 09/26/16 09/26/16 09/26/16 06:59 14:59 22:59 06:59 14:59 22:59 Output Total 600 ml Balance -600 ml Output Urine Total 600 ml (Lashawn Merino MD R3) Result Diagram: 09/25/16 0946 09/26/16 0714 Objective Remarks Gen.: No acute distress Head: Normocephalic. Atraumatic. EENT: Pupils equal round and reactive to light. Nose without drainage. Airway intact. Throat without injection. Cardiovascular: Regular rate and irregular rhythm. No murmurs, rubs or gallops. Respiratory: Lungs clear to auscultation bilaterally. No wheezes or rhonchi. Abdomen: Soft, nontender, nondistended. No peritoneal signs. Musculoskeletal: No gross deformities. 1+ edema to the mid juares. Skin: No obvious rashes or erythema. Neuro: Sensory and motor grossly intact. Cranial nerves II through XII grossly intact. Psych: Appropriate mood and affect (Lashawn Merino MD R3) A/P Assessment and Plan Patient is an 81-year-old man who presents to the emergency department with chief complaint of shortness of breath and orthopnea found to be experiencing A. fib with RVR and CHF exacerbation, presenting with a pulse of 125 and pulse ox of 91, BNP of 997, digoxin less than 0.1, and CTA showing large bilateral pleural effusions, lower lobe airspace disease, peribronchial thickening, mild bronchiectasis in the lower lobes, cystic airspace with possible air-fluid level in the right lobe, mediastinal adenopathy, no PE. Discharge Planning To home once rate is controlled with oral diltiazem (Lashawn Merino MD R3) Attending Attestation Patient seen and examined. Case reviewed and discussed with the resident team. Agree with plan of care as discussed with me and documented in the resident note. (Elham Foss MD) Problem List: (1) CHF (congestive heart failure) Status: Chronic Plan: Patient presented with chief complaint of shortness of breath and orthopnea, fluid overloaded on exam with 2+ pitting edema to the knees bilaterally. Patient likely noncompliant with medications given his history of acute exacerbation that coincided with long car ride in addition to digoxin level of less than 0.1. 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 Patient was rate controlled overnight, now with heart rate of 123. Diltiazem CD 120 mg by mouth daily Diltiazem 30 mg by mouth 4 times a day when necessary for rapid heart rate over 100 bpm, hold for systolic blood pressure less than 100 mmHg (3) Nutrition, metabolism, and development symptoms Status: Acute Plan: Fluids: None indicated at this time given patient's volume overload status Electrolytes: Monitor and replete as needed Nutrition: Heart healthy diet GI prophylaxis: Not indicated at this time (4) No contraindication to deep vein thrombosis (DVT) prophylaxis Status: Acute Plan: Patient already on apixaban. Continue patient's home medication of apixaban. (Lashawn Merino MD R3) Problem Qualifiers (1) CHF (congestive heart failure): Qualified Code: I50.9 - Acute on chronic congestive heart failure, unspecified congestive heart failure type Lashawn Merino MD R3 Sep 26, 2016 11:46 Elham Foss MD Sep 26, 2016 13:47
[2016-09-26] MEDS ORDERED: ZOLPIDEM TARTRATE 5 MG TAB PO PRN (15:00)
--- NOTE | 2016-09-26 15:00 | HHI.PR ---
Addendum to Inpatient Note Addendum Reason: Additional Documentation Additional Information Discussed with pt that we recommend he stay overnight because of his increase heart rate, which suggests we have not titrated his medications to achieve rate control. Pt voiced understanding and consent. He c/o insomnia. Ordered Ambien 5mg po qhs. Paco Ling MD R1 Sep 26, 2016 15:00
[2016-09-26] MEDS: ATORVASTATIN 20 MG TAB PO SCH (21:32)
[2016-09-27] VITALS: BP 92/63; PULSE 88; RESP 20; TEMP 97.8; O2SAT 93
[2016-09-27 04:00] VITALS: BP 129/76; PULSE 92; RESP 18; TEMP 98.5; O2SAT 99
[2016-09-27] MEDS: SODIUM CHLORIDE 0.9% FLUSH 5 ML FLUSH IVF SCH (07:45)
[2016-09-27] MEDS: DILTIAZEM-CD 120 MG CAP ER PO SCH (07:46)
[2016-09-27] MEDS: LISINOPRIL 5 MG TAB PO SCH (07:46)
[2016-09-27] MEDS: CARVEDILOL 6.25 MG TAB PO SCH (07:46)
[2016-09-27] MEDS: POTASSIUM CHLORIDE 20 MEQ CONTROLLED RELEASE TAB PO SCH (07:46)
[2016-09-27] MEDS: FUROSEMIDE 40 MG/4 ML VIAL IVP SCH (07:46)
[2016-09-27] MEDS: DIGOXIN 0.25 MG TAB PO SCH (07:46)
[2016-09-27] MEDS: APIXABAN 5 MG TABLET PO SCH (07:46)
[2016-09-27 08:00] VITALS: BP 121/81; PULSE 81; RESP 22; TEMP 97.7; O2SAT 95
[2016-09-27 09:18] VITALS: O2SAT 92
[2016-09-27 09:49] VITALS: PULSE 103
--- NOTE | 2016-09-27 10:58 | HHI.FPPN ---
Subjective Remarks Was planning for discharge yesterday, but patient had tachycardia, so delayed discharge. No acute events overnight. Except for some mildly low blood pressure of 92/63, afebrile and vital signs stable overnight. Pt reports walking around without any problems including dizziness, shortness of breath, palpitations. Rate controlled with medication overnight and this morning. (Paco Ling MD R1) Objective Vitals Vital Signs Date Time Temp Pulse Resp B/P Pulse Ox O2 Delivery O2 Flow Rate FiO2 09/27/16 09:49 103 09/27/16 08:00 Room Air 09/27/16 08:00 97.7 81 22 121/81 95 09/27/16 04:00 98.5 92 18 129/76 99 09/27/16 00:00 97.8 88 20 92/63 93 09/26/16 20:00 89 09/26/16 20:00 Room Air 09/26/16 20:00 98.0 85 20 110/74 94 09/26/16 17:48 92 21 09/26/16 16:00 97.2 93 22 100/71 92 09/26/16 12:54 Nasal Cannula 2.00 09/26/16 12:00 97.4 101 20 125/81 94 I/O 09/26/16 09/26/16 09/26/16 09/27/16 09/27/16 09/27/16 07:00 15:00 23:00 07:00 15:00 23:00 Intake Total 488 ml 280 ml Output Total 400 ml Balance 88 ml 280 ml Intake Oral 480 ml 280 ml IV Total 8 ml Output Urine Total 400 ml # Voids 3 3 # Bowel Movements 0 0 (Paco Ling MD R1) Result Diagram: 09/25/16 0946 09/26/[address] Angiography 09/25/16 1159 Signed Impressions: Service Date/Time: Sunday, September 25, 2016 12:35 - CONCLUSION: 1. Large bilateral pleural effusions and airspace disease. 2. No evidence for pulmonary embolism. 3. Mediastinal and hilar adenopathy. 4. Right lower lobe cavitary focus not excluded. 5. Emphysema. Richar Will MD Chest X-Ray 09/25/16 0937 Signed Impressions: Service Date/Time: Sunday, September 25, 2016 09:39 - CONCLUSION: Interstitial prominence and basilar airspace disease. Richar Will MD Lower Extremity Ultrasound 09/25/16 0000 Signed Impressions: Service Date/Time: Sunday, September 25, 2016 10:13 - CONCLUSION: Normal examination. Richar Will MD Objective Remarks Gen.: Patient sitting up in chair in no acute distress Head: Normocephalic. Atraumatic. EENT: Pupils equal round and reactive to light. Nose without drainage. Airway intact. Cardiovascular: Regular rate and irregular rhythm. No murmurs, rubs or gallops. Respiratory: Lungs clear to auscultation bilaterally. No wheezes or rhonchi. Abdomen: Soft, nontender, nondistended. No peritoneal signs. Musculoskeletal: No gross deformities. trace edema to the ankles. Skin: No obvious rashes or erythema. Neuro: Sensory and motor grossly intact. Cranial nerves II through XII grossly intact. Psych: Appropriate mood and affect (Paco Ling MD R1) A/P Assessment and Plan Patient is an 81-year-old man who presents to the emergency department with chief complaint of shortness of breath and orthopnea found to be experiencing A. fib with RVR and CHF exacerbation, presenting with a pulse of 125 and pulse ox of 91, BNP of 997, digoxin less than 0.1, and CTA showing large bilateral pleural effusions, lower lobe airspace disease, peribronchial thickening, mild bronchiectasis in the lower lobes, cystic airspace with possible air-fluid level in the right lobe, mediastinal adenopathy, no PE. Discharge Planning Discharge home once rate is controlled with oral diltiazem, likely today. ( Paco Ling MD R1) Attending Attestation Patient seen and examined. Case reviewed and discussed with the resident team. Agree with plan of care as discussed with me and documented in the resident note. (Elham Foss MD) Problem List: (1) Atrial fibrillation with rapid ventricular response Status: Acute Plan: Patient presented to ED in A. fib with with a pulse of 125. Patient rate controlled in the emergency department with IV and by mouth Diltiazem/Cardizem. Patient was rate controlled overnight. Diltiazem CD 120 mg by mouth daily Continue patient's home medication of apixaban 5 mg by mouth twice a day (2) CHF (congestive heart failure) Status: Acute Plan: Patient presented with chief complaint of shortness of breath and orthopnea, fluid overloaded on exam with 2+ pitting edema to the knees bilaterally, and BNP of 997, concerning for acute on chronic CHF exacerbation. Continue home heart failure/a-fib medications as below: * Apixaban 5 mg by mouth twice a day * Atorvastatin 20 mg by mouth daily at bedtime * carvedilol 6.25 mg by mouth twice a day * digoxin 0.25 mg by mouth daily * By mouth Lasix 20 mg by mouth twice a day * Lisinopril 5 mg by mouth daily Blood culture to rule out systemic infection, shows no growth 2 days Monitor intake and output Monitor vital signs (3) Nutrition, metabolism, and development symptoms Status: Acute Plan: Fluids: None indicated at this time given patient presentation with volume overload Electrolytes: Monitor and replete as needed Nutrition: Heart healthy diet GI prophylaxis: Not indicated at this time (4) No contraindication to deep vein thrombosis (DVT) prophylaxis Status: Acute Plan: Patient already on apixaban. Continue patient's home medication of apixaban (Paco Ling MD R1) Problem Qualifiers (1) CHF (congestive heart failure): Qualified Code: I50.9 - Acute on chronic congestive heart failure, unspecified congestive heart failure type Paco Ling MD R1 Sep 27, 2016 10:58 Elham Foss MD Sep 27, 2016 13:53
[2016-09-27] MEDS: FUROSEMIDE 20 MG TAB PO SCH ×2 (11:00→11:38)
[2016-09-27 11:48] VITALS: BP 95/64; PULSE 93; RESP 18; TEMP 96.6; O2SAT 93
[2016-09-27] MEDS ORDERED: AMBI5TAB PO (12:01)
[2016-09-27] MEDS ORDERED: POTA20TA5 PO (12:01)
[2016-09-27] MEDS ORDERED: CARD120C4 PO (12:01)
--- NOTE | 2016-09-27 12:03 | HHI.DCPOC ---
Discharge Care Plan Diagnosis: (1) Atrial fibrillation with rapid ventricular response (2) CHF (congestive heart failure) Goals to Promote Your Health * To prevent worsening of your condition and complications, please take your medications as prescribed. * To maintain your health at the optimal level, please follow-up with a local doctor within a week. Directions to Meet Your Goals Take your medications as prescribed Follow your dietary instruction Follow activity as directed Keep your appointments as scheduled Take your immunizations and boosters as scheduled If your symptoms worsen call your PCP, if no PCP go to Urgent Care Center or Emergency Room Smoking is Dangerous to Your Health. Avoid second hand smoke Call the 24-hour hour crisis hotline for domestic abuse at Paco Ling MD R1 Sep 27, 2016 12:03
[2016-09-27] MEDS ORDERED: POTASSIUM CHLORIDE 10 MEQ CAP PO ONE (12:15)
[2016-09-27] MEDS ORDERED: FUROSEMIDE 20 MG TAB PO SCH (21:00)
== END 2016-09-27 14:56 | disposition home or self-care (01) ==
LOC: NEPA 09:24 → NEDA 13:42 → N04A 17:29
PROVIDERS: ADMIT Family Medicine; ATTEND Family Medicine
DX: I48.91 Unspecified atrial fibrillation (principal); I50.9 Heart failure, unspecified; Z95.0 Presence of cardiac pacemaker; Z99.81 Dependence on supplemental oxygen; E78.00 Pure hypercholesterolemia, unspecified; N40.0 Benign prostatic hyperplasia without lower urinary tract symptoms; I10 Essential (primary) hypertension; Z79.899 Other long term (current) drug therapy; R59.0 Localized enlarged lymph nodes; J43.9 Emphysema, unspecified; J47.9 Bronchiectasis, uncomplicated
CPT/HCPCS: 71010; 71275; 80048; 80053; 80162; 81001; 82550; 83735; 83880; 84484; 85025; 85610; 85730; 87040; 87804; 93005; 93970; 96374; 96375; 97110; 97116; 97162; 99285; G0378; G8987; G8988; J1940; Q9967